=== PATIENT | female | born 1985 | race African-American/Black ===

== ENCOUNTER 2017-07-31 22:14 | Emergency (ER) | payer MEDICAID ==
[~2017-07-31] VITALS: Ht 162.6 cm; Wt 91.0 kg
[~2017-07-31 22:14] MED LIST: FOLI-43 PO; KEPP500
[2017-08-01] MEDS ORDERED: HYDROCODONE/ACETAMINOPHEN 5/325MG TABLET PO ONE (00:15)
[2017-08-01] MEDS ORDERED: LEVETIRACETAM 500MG PREMIX 100 ML IV ONE (00:15)
[2017-08-01 05:30] VITALS: BP 124/80
== END 2017-08-01 06:01 | disposition home or self-care (01) ==
LOC: ER 22:19
DX: G40.909 Epilepsy, unspecified, not intractable, without status epilepticus (principal); R51 Headache; R03.0 Elevated blood-pressure reading, without diagnosis of hypertension
CPT/HCPCS: 70450; 81025; 96365; 99284; J1953; Z7610